=== PATIENT | female | born 1990 | race African-American/Black ===

== ENCOUNTER 2017-04-29 15:02 | Emergency (ER) | payer MEDICAID ==
[~2017-04-29 15:02] MED LIST: LESSTAB PO; PERC5TAB12 PO
--- NOTE | 2017-04-29 16:05 | PD ---
HPI Chief Complaint abdominal/back pain Date Seen: Apr 29, 2017 Time Seen: 15:58 Travel History International Travel<30 Days: No Contact w/Intl Traveler<30Days: No History of Present Illness HPI Patient is a 27 year old @ 34/6 weeks gestation who presents to the OB ED with abdominal pain and seen to rule out labor. She denies leakage of fluid, vaginal bleeding, and contractions. She feels baby moving regularly. She denies HO/N/V/D/fever/sick contacts/SOB/calf pain/dizziness/seeing spots. OB care is with Amy Olmstead. Patient states that she has been in pain since this morning, describes pain as constant, stabbing in the right side of the stomach and the back. Rates pain 7/ 10. No bleeding, gush of fluid,+ contractions. Endorses movement. Denies dysuria, headaches, visual disturbances, upper epigastric pain, leg swelling. States that she felt like she drink enough today, had sex yesterday, all labs have been within normal limits, no abnormal ultrasound. States that she was called and told that she had low hemoglobin and prescribed iron pills, however stopped taking it because of constipation. Also reports occasional low blood pressure. Does not smoke/drink EtOH/use drugs. Has a history of kidney stone. Weeks Gestation: 35 Para: 3 : 6 Miscarriage: 1 History Past Medical History Medical History: Denies Significant Hx Obstetric History Obstetric History 2010, vaginal delivery 6 ounces, full-term 2012 vaginal delivery, 6 lbs. 8 oz., full-term 2014 vaginal delivery 6 lbs. 12 oz., full-term 2007, at 25 weeks, demise 2013 miscarriage Past Surgical History Surgical History: Unable to Obtain Family History Family History: Negative Social History Alcohol Use: No Tobacco Use: No Substance Abuse: No Allergies-Medications (Allergen,Severity, Reaction): Coded Allergies: No Known Allergies (Unverified , 03/29/16) Home Meds Active Scripts Oxycodone-Acetaminophen 5-325 mg (Percocet 5-325 mg) Oxycodone 5/325 Acetaminophen Tab, 1-2 TAB PO Q6H Y for PAIN, #30 TAB Prov:Biju Paredes MD 04/24/15 Reported Medications Levonorgestrel & Eth Estradiol (Lessina 28) 28 Tab Pack, 1 TAB PO DAILY, PACK 12/17/15 Review of Systems Except as stated in HPI: all other systems reviewed are Neg Physical Exam Narrative GENERAL: Well-nourished, well-developed patient. SKIN: Warm and dry. HEAD: Normocephalic and atraumatic. EYES: No scleral icterus. No injection or drainage. NECK: Supple, trachea midline. No JVD. CARDIOVASCULAR: Regular rate and rhythm without murmurs, gallops, or rubs. RESPIRATORY: Breath sounds equal bilaterally. No accessory muscle use. ABDOMEN/GI: Abdomen soft, non-tender, bowel sounds present, no rebound, no guarding GENITOURINARY: External Genitalia: intact and normal in appearance Cervix: Posterior Dilatation: 3 Effacement: 20 Station: -3 Presentation: Vertex Membranes: Intact Uterine Contractions: Irregular FHT's: Category: 1 Baseline: 140 Reactive: Yes Variability: Moderate Decels: [-] EXTREMITIES: No cyanosis or edema. NEUROLOGICAL: Awake and alert. Motor and sensory grossly within normal limits. Five out of 5 muscle strength in all muscle groups. Normal speech. Data Data Vital Signs Reviewed: Yes MDM Plan A/P 27-year-old 34/6 who is a [facility] who presents to the ED for possible labor. Patient is 3//-3, FHT is Cat 1 and reassuring, no concern for labor at this time. 3 contractions in the last hour. - Ordered UA to rule out UTI v kidney stone. UA within normal limits. Will d/c patient with orders to return if vaginal bleeding, painful and regular contractions q5min within an hour, rupture of membranes, or no movement in 12 hours. Patient understands and agrees. All questions were answered. WDW Dr. Rowe Diagnosis Diagnosis: Primary Impression: Irregular contractions Disposition: DISCHARGE HOME Condition: Stable Vidya Littlejohn MD R1 Apr 29, 2017 16:05
[2017-04-29 16:09] VITALS: BP 102/61; PULSE 88
[2017-04-29 17:09] LABS: BILIRUBIN, URINE NEG (NEG); BLOOD, URINE NEG (NEG); GLUCOSE,URINE NEG (NEG); KETONE, URINE NEG (NEG); MUCUS URINE FEW /lpf (OCC); NITRITE,URINE NEG (NEG); PH, URINE 7.5 (5.0-8.5); SQUAMOUS EPITHELIAL CELL URINE 2 /hpf (0-5); URINE COLOR LIGHT-YELLOW (YELLW/STRAW); URINE LEUKOCYTE ESTERASE NEG (NEG)
== END 2017-04-29 19:16 | disposition home or self-care (01) ==
LOC: HOBED 15:02
DX: O47.03 False labor before 37 completed weeks of gestation, third trimester (principal); Z3A.35 35 weeks gestation of pregnancy
CPT/HCPCS: 59025; 81001

== ENCOUNTER 2017-06-02 03:32 | Inpatient (IN) | payer MEDICAID ==
[2017-06-02] VITALS (12 sets, daily range): BP systolic 97–125; BP diastolic 63–80; PULSE 64–95; RESP 18; TEMP 97.8–98.1; O2SAT 99
[2017-06-02] MEDS ORDERED: LACTATED RINGER'S 1000 ML INJ 1,000 ML IV SCH (03:58)
[2017-06-02] MEDS ORDERED: LACTATED RINGER'S 1000 ML INJ 1,000 ML IV PRN (03:58)
[2017-06-02] MEDS ORDERED: ONDANSETRON HCL 4 MG/2 ML VIAL IV PUSH PRN (04:00)
[2017-06-02] MEDS ORDERED: CITRIC ACID-SODIUM CITRATE LIQ 30 ML UDC PO SCH (04:00)
[2017-06-02] MEDS ORDERED: LIDOCAINE HCL 1% 50 ML VIAL INFIL PRN (04:00)
[2017-06-02] MEDS ORDERED: SODIUM CHLORID 0.9% 500 ML INJ 500 ML IV PRN (04:00)
[2017-06-02] MEDS ORDERED: LIDOCAINE HCL 1% 50 ML VIAL I-DERMAL PRN (04:00)
[2017-06-02] MEDS ORDERED: OXYTOCIN 30 UNITS-500ML PREMIX 500 ML IV ONE (04:00)
[2017-06-02] MEDS ORDERED: MINERAL OIL 10 ML VIAL TOPICAL PRN (04:00)
--- NOTE | 2017-06-02 04:00 | PD ---
HPI Chief Complaint Contractions Date Seen: Jun 02, 2017 Time Seen: 03:57 Travel History International Travel<30 Days: No Contact w/Intl Traveler<30Days: No Known Affected Area: No History of Present Illness HPI 27-year-old comes in with contractions patient's had 3 prior term deliveries without complications. She is group B strep negative and has obtained care with Amy Olmstead. Patient's been tonja for several hours. Weeks Gestation: 40 Para: 3 : 6 History Past Medical History Medical History: Denies Significant Hx Obstetric History Obstetric History Spontaneous vaginal delivery x3 Past Surgical History Surgical History: No Previous Surgery Family History Family History: Negative Social History Alcohol Use: No Tobacco Use: No Substance Abuse: No Allergies-Medications (Allergen,Severity, Reaction): Coded Allergies: No Known Allergies (Unverified , 03/29/16) Home Meds Active Scripts Oxycodone-Acetaminophen 5-325 mg (Percocet 5-325 mg) Oxycodone 5/325 Acetaminophen Tab, 1-2 TAB PO Q6H Y for PAIN, #30 TAB Prov:Biju Paredes MD 04/24/15 Reported Medications Levonorgestrel & Eth Estradiol (Lessina 28) 28 Tab Pack, 1 TAB PO DAILY, PACK 04/24/15 Review of Systems Except as stated in HPI: all other systems reviewed are Neg Physical Exam Narrative GENERAL: Well-nourished, well-developed patient. SKIN: Warm and dry. HEAD: Normocephalic and atraumatic. EYES: No scleral icterus. No injection or drainage. ENT: No nasal drainage noted. Mucous membranes pink. Airway patent. NECK: Supple, trachea midline. No JVD. CARDIOVASCULAR: Regular rate and rhythm without murmurs, gallops, or rubs. RESPIRATORY: Breath sounds equal bilaterally. No accessory muscle use. ABDOMEN/GI: Abdomen soft, non-tender, bowel sounds present, no rebound, no guarding Gravid to [34-] weeks size Fundal Height: [-] GENITOURINARY: External Genitalia: intact and normal in appearance BUS glands: [-] Normal Cervix: [-] Anterior Dilatation: [-] 7-8 Effacement: [-] 80 Station: [-] -2 Presentation: [-] Vertex Membranes: [intact or ruptured] intact Uterine Contractions: [-] Every 8-10 FHT's: Category: [-] 1 Baseline: [-] 140 Reactive: [-] Moderate Variability: [-] Moderate Decels: [-] Absent EXTREMITIES: No cyanosis or edema. BACK: Nontender without obvious deformity. No CVA tenderness. NEUROLOGICAL: Awake and alert. Motor and sensory grossly within normal limits. Five out of 5 muscle strength in all muscle groups. Normal speech. Data Data Vital Signs Reviewed: Yes Group B Strep: Negative MDM Medical Record Reviewed: Yes Plan at term gestation in advanced labor, group B strep negative anticipate vaginal delivery Diagnosis Diagnosis: Primary Impression: 40 weeks gestation of Additional Impression: Rapid first stage of labor Michelle Curry MD Jun 02, 2017 04:00
[2017-06-02 04:18] LABS: AUTOMATED NEUTROPHIL # 8.1 TH/MM3 (1.8-7.7); BASOPHIL % 0.3 % (0.0-2.0); EOSINOPHIL # 0.1 TH/MM3 (0-0.4); EOSINOPHIL % 1.1 % (0.0-4.0); HEMATOCRIT 31.9 % (35.0-46.0); HEMOGLOBIN 11.1 GM/DL (11.6-15.3); LYMPH % 18.6 % (9.0-44.0); LYMPHOCYTE # 2.1 TH/MM3 (1.0-4.8); MEAN CELL VOLUME 93.2 FL (80.0-100.0); MEAN CORPUSCULAR HEMOGLOBIN 32.5 PG (27.0-34.0); MEAN CORPUSCULAR HGB CONC 34.9 % (32.0-36.0); MEAN PLATELET VOLUME 7.4 FL (7.0-11.0); MONO % 7.4 % (0.0-8.0); MONOCYTE # 0.8 TH/MM3 (0-0.9); NEUT % 72.6 % (16.0-70.0); PLATELET COUNT 224 TH/MM3 (150-450); RED BLOOD COUNT 3.43 MIL/MM3 (4.00-5.30); RED CELL DISTRIBUTION WIDTH 13.1 % (11.6-17.2); WHITE BLOOD COUNT 11.1 TH/MM3 (4.0-11.0)
[2017-06-02] MEDS ORDERED: SODIUM CHLOR 0.9% 1000 ML INJ 1,000 ML IV PRN (04:18)
[2017-06-02 04:27] LABS: BACTERIA, URINE MOD /hpf; BILIRUBIN, URINE NEG (NEG); BLOOD, URINE NEG (NEG); GLUCOSE,URINE NEG (NEG); KETONE, URINE NEG (NEG); NITRITE,URINE NEG (NEG); SQUAMOUS EPITHELIAL CELL URINE 3 /hpf (0-5); URINE COLOR LIGHT-YELLOW (YELLW/STRAW); URINE LEUKOCYTE ESTERASE TRACE (NEG)
--- NOTE | 2017-06-02 06:10 | PD.OB.DELI ---
Weeks gestation: 40 Artificial rupture of membrane: Yes Artificial ROM date: Jun 02, 2017 Artifical ROM time: 04:15 Anesthesia: None Episiotomy: None Vaginal Delivery: Normal Presentation: Occiput anterior Nuchal Cord: x2 (easily reduced after anterior shoulder delivered) Delayed cord clamping (45 sec): Yes Infant: Male Delivery date: Jun 02, 2017 Delivery time: 05:55 One Minute : 8 Five Minute : 9 Weight: 2778 grams Placenta: Spontaneous delivery, Intact, 3 vessel cord Laceration: No lacerations Estimated blood loss: 200 mL Additional Information Head delivered by maternal effort. Nuchal cord x2 found after anterior shoulder delivered - easily reduced at that time. Remainder of delivery was uneventful. Observed by Dr. Curry and Carlos Barron MD Jun 02, 2017 06:10
[2017-06-02] MEDS ORDERED: WITCH HAZEL 50%/GLYCERIN 12.5% 40 PAD JAR TOPICAL PRN (06:15)
[2017-06-02] MEDS ORDERED: BENZOCAINE 20% TOPICAL SPRAY 60 ML CAN TOPICAL PRN (06:15)
[2017-06-02] MEDS ORDERED: DOCUSATE SODIUM 50 MG/SENNA 8.6 MG TAB PO PRN (06:15)
[2017-06-02] MEDS ORDERED: ALUMINUM/MAGNESIUM/SIMETH 30 ML CUP PO PRN (06:15)
[2017-06-02] MEDS ORDERED: ACETAMINOPHEN 325 MG TAB PO PRN (06:15)
[2017-06-02] MEDS ORDERED: ZOLPIDEM TARTRATE 5 MG TAB PO PRN (06:15)
[2017-06-02] MEDS ORDERED: OXYTOCIN 30 UNITS-500ML PREMIX 500 ML IV SCH (06:15)
[2017-06-02] MEDS ORDERED: ONDANSETRON ODT 4 MG TAB PO PRN (06:15)
[2017-06-02] MEDS ORDERED: SODIUM CHLORIDE 0.9% FLUSH 10 ML FLUSH IV FLUSH PRN (06:15)
[2017-06-02] MEDS ORDERED: oxyCODONE/ACETAMINOPHEN 5 MG/325 MG TAB PO PRN (06:15)
[2017-06-02] MEDS: IBUPROFEN 800 MG TAB PO PRN ×3 (06:40→17:59)
[2017-06-02] MEDS: oxyCODONE/ACETAMINOPHEN 5 MG/325 MG TAB PO PRN ×4 (06:40→21:52)
[2017-06-02] MEDS ORDERED: DIPHTH/TETANUS/ACEL PERTUSSIS (BOOSTER) 0.5 ML VIAL/PFS IM ONE (16:00)
[2017-06-02] MEDS ORDERED: MEASLES, MUMPS, RUBELLA VACCINE 0.5 ML VIAL SQ ONE (16:00)
[2017-06-03] MEDS: IBUPROFEN 800 MG TAB PO PRN ×3 (01:31→19:29)
[2017-06-03] MEDS: oxyCODONE/ACETAMINOPHEN 5 MG/325 MG TAB PO PRN ×4 (01:31→23:43)
[2017-06-03 08:00] VITALS: BP 100/69; PULSE 67; RESP 18; TEMP 97.9; O2SAT 97
--- NOTE | 2017-06-03 09:26 | HHI.OB ---
Subjective Post Day: 1 Remarks Patient is a 27-year-old delivered at 40 weeks and 2 days. Patient is day one after vaginal delivery. Patient's pain is well-controlled. Patient reports minimal bleeding. Patient reports eating and drinking without any nausea or vomiting. Patient has passed gas but has not had a bowel movement. Patient denies chest pain and shortness of breath. Patient has been ambulating; she denies lower extremity pain. Patient has decided to breast-feed. Objective Vitals/I&O Vital Signs Date Time Temp Pulse Resp B/P (MAP) Pulse Ox O2 Delivery O2 Flow Rate FiO2 06/02/17 20:00 71 107/63 (78) 06/02/17 20:00 98.1 18 99 Objective Remarks GENERAL: Well-nourished, well-developed patient. CARDIOVASCULAR: Regular rate and rhythm without murmurs, gallops, or rubs. RESPIRATORY: Breath sounds equal bilaterally. No accessory muscle use. ABDOMEN/GI: Abdomen soft, minimally tender. Fundus: Firm, minimally tender at umbilicus. GENITOURINARY: Light to moderate bleeding. EXTREMITIES: No cyanosis or edema, non-tender, without signs of DVT. Medications and IVs Current Medications Medications (Trade) Dose Ordered Sig/Rhett Route Start Time Stop Time Status Last Admin (NS Flush) 2 ml BID IV FLUSH 06/02/17 09:00 (NS Flush) 2 ml UNSCH PRN IV FLUSH 06/02/17 06:15 (Tylenol) 650 mg Q4H PRN PO 06/02/17 06:15 (Motrin) 800 mg Q8H PRN PO 06/02/17 06:15 06/03/17 01:31 (Percocet 5-325 Mg) 1 tab Q4H PRN PO 06/02/17 06:15 06/03/17 07:59 (Percocet 5-325 Mg) 2 tab Q4H PRN PO 06/02/17 06:15 (Americaine 20% Top Spr) 1 spray Q4H PRN TOPICAL 06/02/17 06:15 06/02/17 12:11 (Tucks Pads) 1 applic QID PRN TOPICAL 06/02/17 06:15 06/02/17 12:11 (Loraine-Colace) 2 tab Q12H PRN PO 06/02/17 06:15 (Ambien) 5 mg HS PRN PO 06/02/17 06:15 (Mag-Al Plus Susp Liq) 15 ml Q8H PRN PO 06/02/17 06:15 (Zofran Odt) 4 mg Q6H PRN PO 06/02/17 06:15 Assessment/Plan Assessment and Plan Patient is a 27-year-old delivered at 40 weeks and 2 days. Patient is day one after vaginal delivery. * Continue routine care. * Motrin and Percocet when necessary for pain. * Encourage OOB. * Pelvic rest for 6 weeks will need follow-up appointment at that time. * Anticipate discharge tomorrow. Eneida Jaramillo MD R1 Jun 03, 2017 09:26
[2017-06-03 20:00] VITALS: BP 100/59; PULSE 79; RESP 18; TEMP 98.4; O2SAT 97
[2017-06-03] MEDS: SODIUM CHLORIDE 0.9% FLUSH 10 ML FLUSH IV FLUSH SCH ×2 (22:15→23:41)
[2017-06-04] MEDS: IBUPROFEN 800 MG TAB PO PRN (07:15)
[2017-06-04] MEDS ORDERED: PERI PO (07:15)
[2017-06-04] MEDS: oxyCODONE/ACETAMINOPHEN 5 MG/325 MG TAB PO PRN (07:15)
[2017-06-04] MEDS ORDERED: IBUP1TAB7 PO (07:15)
--- NOTE | 2017-06-04 07:31 | HHI.OB ---
Subjective Post Day: 2 Remarks day #2. AFVSS overnight. Pain minimal. Decreased lochia. Denies dysuria. No breast tenderness. She is feeding the baby via bottle. Baby is still in NICU. Appetite good. No nausea or vomiting. Endorses flatus. No bowel movement. Ambulating well. Denies calf pain, shortness of breath, or cough. Otherwise, she is doing well this morning and has no other complaints. Objective Vitals/I&O Vital Signs Date Time Temp Pulse Resp B/P (MAP) Pulse Ox O2 Delivery O2 Flow Rate FiO2 06/03/17 20:00 98.4 79 18 100/59 (73) 97 06/03/17 08:00 97.9 67 18 100/69 (79) 97 Objective Remarks GENERAL: Well-nourished, well-developed patient. CARDIOVASCULAR: Regular rate and rhythm without murmurs, gallops, or rubs. RESPIRATORY: Breath sounds equal bilaterally. No accessory muscle use. ABDOMEN/GI: Abdomen soft, minimally tender. Fundus: Firm, minimally tender at umbilicus. GENITOURINARY: Light to moderate bleeding. EXTREMITIES: No cyanosis or edema, non-tender, without signs of DVT. Medications and IVs Current Medications Medications (Trade) Dose Ordered Sig/Rhett Route Start Time Stop Time Status Last Admin (NS Flush) 2 ml BID IV FLUSH 06/02/17 09:00 06/03/17 23:41 (NS Flush) 2 ml UNSCH PRN IV FLUSH 06/02/17 06:15 (Tylenol) 650 mg Q4H PRN PO 06/02/17 06:15 (Motrin) 800 mg Q8H PRN PO 06/02/17 06:15 06/04/17 07:15 (Percocet 5-325 Mg) 1 tab Q4H PRN PO 06/02/17 06:15 06/04/17 07:15 (Percocet 5-325 Mg) 2 tab Q4H PRN PO 06/02/17 06:15 (Americaine 20% Top Spr) 1 spray Q4H PRN TOPICAL 06/02/17 06:15 06/02/17 12:11 (Tucks Pads) 1 applic QID PRN TOPICAL 06/02/17 06:15 06/02/17 12:11 (Loraine-Colace) 2 tab Q12H PRN PO 06/02/17 06:15 06/04/17 07:15 (Ambien) 5 mg HS PRN PO 06/02/17 06:15 (Mag-Al Plus Susp Liq) 15 ml Q8H PRN PO 06/02/17 06:15 (Zofran Odt) 4 mg Q6H PRN PO 06/02/17 06:15 Assessment/Plan Assessment and Plan Patient is a 27-year-old delivered at 40 weeks and 2 days. Patient is day 2 after vaginal delivery. * Continue routine care. * Motrin and Percocet when necessary for pain. * Encourage OOB. * Pelvic rest for 6 weeks will need follow-up appointment at that time. * Re control, she would like to go on oral contraceptives * Anticipate discharge today Terry Carvalho MD Jun 04, 2017 07:31
--- NOTE | 2017-06-04 07:32 | HHI.DCPOC ---
Discharge Care Plan Diagnosis: (1) Normal vaginal delivery Report Symptoms to Your Doctor -Temperature above 100.5 degrees -Redness, of incision or excessive or foul smelling drainage -Unusual pain or calf pain -Increased vaginal bleeding -Painful or difficulty urinating -Feelings of extreme sadness or anxiety after 2 weeks Goals to Promote Your Health * To prevent worsening of your condition and complications * To maintain your health at the optimal level Directions to Meet Your Goals Take your medications as prescribed Follow your dietary instruction Follow activity as directed Ensure plenty of rest for recovery Drink fluids for hydration Keep your appointments as scheduled Take your immunizations and boosters as scheduled If your symptoms worsen call your PCP, if no PCP go to Urgent Care Center or Emergency Room Smoking is Dangerous to Your Health. Avoid second hand smoke Call the 24-hour crisis hotline for domestic abuse at Terry Carvalho MD Jun 04, 2017 07:32
[2017-06-04 08:00] VITALS: BP 97/71; PULSE 73; RESP 15; TEMP 98.3; O2SAT 99
== END 2017-06-04 14:22 | disposition home or self-care (01) | DRG 775 ==
LOC: HOBED 03:32 → H2EA 03:57 → H1EA 07:34
PROVIDERS: ADMIT Obstetrics & Gynecology Obstetrics; ATTEND Obstetrics & Gynecology Obstetrics
PROC: 10E0XZZ Delivery of Products of Conception, External Approach (ICD-10-PCS; principal; 2017-06-02)
PROC: 10907ZC Drainage of Amniotic Fluid, Therapeutic from Products of Conception, Via Natural or Artificial Opening (ICD-10-PCS; 2017-06-02)
DX: O69.81X0 Labor and delivery complicated by cord around neck, without compression, not applicable or unspecified (principal); Z37.0 Single live birth; Z3A.40 40 weeks gestation of pregnancy
CPT/HCPCS: 59025; 80307; 81001; 85025; 87077; 87086; 87186; 90715; J2590; J7120